=== PATIENT | female | born 1985 | race Caucasian/White ===

== ENCOUNTER 2023-09-12 19:52 | Inpatient (IN) | payer OTHER, SELFPAY ==
[2023-09-12] MEDS: LR 1000 IV ×2 (20:15→22:00)
[2023-09-12 20:20] VITALS: BP 92/57; BMI 29.1
[2023-09-12 20:23] LABS: % Basophils 0.1 % (0-2); % Eosinophils 0.5 % (0-6); % Immature Granulocytes 0.4 % (0-0.5); % Lymphocytes 21.2 % (20.5-51.1); % Monocytes 8.6 % (1.7-9.3); % Neutrophils 69.2 % (42.2-75.2); Absolute Lymphocytes 1.6 10^3/uL (1.2-3.4); Absolute Monocytes 0.7 10^3/uL (0.1-0.6); Absolute Neutrophils 5.2 10^3/uL (1.4-6.5); Hematocrit 36.8 % (37.0-47.0); Hemoglobin 12.4 g/dL (12.0-16.0); Mean Corp Hgb Conc. 33.7 g/dL (33.0-37.0); Mean Corpuscular Hgb 29.8 pg (27.0-31.0); Mean Corpuscular Volume 88.5 fL (81.0-99.0); Mean Platelet Volume 11.4 fL (7.4-10.4); Nucleated Red Blood Cells % 0 %; Platelet Count 192 10^3/uL (130-400); Red Blood Cell Count 4.16 10^6/uL (4.20-5.40); Red Cell Dist. Width 13.3 % (11.5-14.5); White Blood Cell Count 7.6 10^3/uL (4.8-10.8)
[2023-09-12] MEDS: SUBLIMAZE 100 MCG EPIDURAL (20:45)
[2023-09-12] MEDS: FENTANYL/BUPIVACAINE 100 EPIDURAL (20:46)
[2023-09-13] MEDS: PRENATAL PLUS 1 TABLET PO (13:02)
[2023-09-13] MEDS: MOTRIN 600 MG PO (17:20)
[2023-09-14] MEDS: MOTRIN 600 MG PO ×4 (00:09→22:23)
[2023-09-14] MEDS: TYLENOL 650 MG PO ×4 (00:09→22:27)
[2023-09-14 04:44] LABS: Hematocrit 26.7 % (37.0-47.0)
[2023-09-14] MEDS: SENOKOT-S 1 TABLET PO (08:09)
[2023-09-14] MEDS: PRENATAL PLUS 1 TABLET PO (08:09)
[2023-09-14] MEDS: FEOSOL 325 MG PO ×2 (08:10→21:02)
[2023-09-15] MEDS: TYLENOL 650 MG PO (07:28)
[2023-09-15] MEDS: FEOSOL 325 MG PO (07:28)
[2023-09-15] MEDS: PRENATAL PLUS 1 TABLET PO (07:28)
[2023-09-15] MEDS: MOTRIN 600 MG PO (07:28)
[2023-09-15] MEDS: SENOKOT-S 1 TABLET PO (07:29)
[2023-09-17 12:39] LABS: Syphilis/T. pallidum Ab Reflex Negative (Negative)
== END 2023-09-15 11:07 | disposition home or self-care (01) | DRG 807 ==
LOC: LDRP 19:52
PROVIDERS: ADMITTING PHYSICIAN Obstetrics & Gynecology
PROC: 10E0XZZ Delivery of Products of Conception, External Approach (ICD-10-PCS; 2023-09-13)
PROC: 6A550ZT Pheresis of Cord Blood Stem Cells, Single (ICD-10-PCS; 2023-09-13)
DX: O70.0 First degree perineal laceration during delivery (principal); Z37.0 Single live birth; Z3A.39 39 weeks gestation of pregnancy; O76 Abnormality in fetal heart rate and rhythm complicating labor and delivery; O90.81 Anemia of the puerperium; D64.9 Anemia, unspecified; Z88.0 Allergy status to penicillin; Z80.6 Family history of leukemia; Z63.4 Disappearance and death of family member
CPT/HCPCS: 36415; 85014; 85018; 85025; 86780; 86850; 86900; 86901